=== PATIENT | male | born 1955 | race Caucasian/White ===

== ENCOUNTER → 2023-03-02 12:11 | Outpatient (REF) | payer MEDICARE, MEDICAID, SELFPAY ==
--- NOTE | 2023-03-02 12:17 | HM_ITS ---
* Total monitoring time 2 days. * Underlying rhythm is sinus. Average ventricular rate 66/Min. Range 47 to 93/Min. * Very rare supraventricular and ventricular ectopy. * No significant pauses or AV blocks. * No patient markers or events in the diary. MTDD
== END ==
LOC: HO.CARD 12:11
PROVIDERS: Visit Provider Internal Medicine
DX: R55 Syncope and collapse (principal)
CPT/HCPCS: 93225